=== PATIENT | male | born 1950 | race Caucasian/White ===

== ENCOUNTER 2016-11-29 15:26 | Emergency (ER) | payer OTHER ==
[~2016-11-29] VITALS: Ht 177.8 cm; Wt 101.6 kg
[2016-11-29] MEDS ORDERED: LANTUS SUBQ (16:00)
[2016-11-29] MEDS ORDERED: VASOTEC10 MG PO (16:01)
[2016-11-29] MEDS ORDERED: METFORMIN HCL500 MG PO (16:01)
[2016-11-29] MEDS ORDERED: LIPITOR40 MG PO (16:02)
[2016-11-29] MEDS ORDERED: VERAPAMIL ER240 MG PO (16:02)
[2016-11-29] MEDS ORDERED: ASPIR 8181 MG PO (16:03)
[2016-11-29] MEDS ORDERED: VITAMINC500 PO (16:03)
[2016-11-29] MEDS ORDERED: COZAAR 50 MG TA50 M2 PO (16:04)
[2016-11-29] MEDS ORDERED: ALLOPURINOL 30300 M1 PO (16:04)
[2016-11-29 16:51] VITALS: BP 117/64
== END 2016-11-29 16:54 | disposition home or self-care (01) ==
LOC: ER 15:26
DX: S61.217A Laceration without foreign body of left little finger without damage to nail, initial encounter (principal); I10 Essential (primary) hypertension; E11.9 Type 2 diabetes mellitus without complications; W26.8XXA Contact with other sharp object(s), not elsewhere classified, initial encounter; Y93.89 Activity, other specified; Y92.89 Other specified places as the place of occurrence of the external cause; Y99.8 Other external cause status

== ENCOUNTER 2016-12-12 15:32 | Emergency (ER) | payer OTHER ==
[~2016-12-12] VITALS: Ht 177.8 cm; Wt 103.4 kg
[~2016-12-12 15:32] MED LIST: ALLOPURINOL 30300 M1 PO; ASPIR 8181 MG PO; COZAAR 50 MG TA50 M2 PO; LANTUS SUBQ; LIPITOR40 MG PO; METFORMIN HCL500 MG PO; VASOTEC10 MG PO; VERAPAMIL ER240 MG PO; VITAMINC500 PO
[2016-12-12 15:33] VITALS: BP 123/75
== END 2016-12-12 16:22 | disposition home or self-care (01) ==
LOC: ER 15:32
DX: S61.217D Laceration without foreign body of left little finger without damage to nail, subsequent encounter (principal); I10 Essential (primary) hypertension; E11.9 Type 2 diabetes mellitus without complications; X58.XXXD Exposure to other specified factors, subsequent encounter; Y92.89 Other specified places as the place of occurrence of the external cause; Y99.8 Other external cause status